=== PATIENT | female | born 1955 | race Caucasian/White ===

== ENCOUNTER 2017-04-05 09:29 | Outpatient (CLI) ==
[2012-12-22 18:29] VITALS: BMI 32.0
--- NOTE | 2017-04-06 09:21 | MAMMO ---
EXAM: Digital screening mammogram with 3-D tomosynthesis and CAD HISTORY: Screening mammogram. COMPARISON: Mammogram 10/02/2014 FINDINGS: MLO and CC images demonstrate biopsy changes in the medial central left breast with associa dianna soft tissue that is unchanged. There is scattered fibroglandular densities. Benign calcification s are present. No acute abnormality is noted on tomosynthesis. IMPRESSION: 1. No new or suspicious pulmonary nodule or calcification. 2. Stable left breast biopsy site with associated minimal soft tissue dating back to 2013. BIRADS category II: Benign findings. Recommendation: Annual screening mammogram.
== END 2017-04-05 09:30 | disposition home or self-care (01) ==
LOC: RAD 09:29
PROVIDERS: ATTEND Internal Medicine
DX: Z12.31 Encounter for screening mammogram for malignant neoplasm of breast (principal)
CPT/HCPCS: 77067

== ENCOUNTER 2017-06-15 10:00 | Outpatient (RCR) ==
[2012-12-22 18:29] VITALS: BMI 32.0
--- NOTE | 2017-06-03 15:58 | RS.OPPTEV2 ---
Date of Note: 06/03/17 Visit #: 1 Date of Evaluation: 06/03/17 Payer Source: Insurance Surgery Performed?: Yes Date of Procedure: 05/27/17 Treatment Diagnosis: Left knee pain, joint effusion, knee stiffness, s/p knee arthroscopy History of Condition/Mechanism of Injury:: States she had a previous surgery to the left knee more than twenty years ago. States she has had a few years of pain and it was found that she had a bone spur and some arthritis. She had arthroscopic surgery on 05/27/17 to clean up the knee joint. Prior Level of Function.....Patient was independent with: ADL's, Self Care, Caregiving, Ambulation/Mobility, Community Integration/Access Functional Limitations: Sleep, ADL's, Sitting, Standing, Bending, Squatting, Ambulation, Community Access/Integration Current Subjective/complaints:: Patient reports left knee pain and swelling. States Treatment Side (optional): Left Medical History Surgical History Comments:: left knee surgery 20+ years ago. Smoking Status: Never smoker Hx Home Medications: Lisinopril,Fluoxetine, pravastatin, Hydrocodone 5/325 ( Paige) Patient's Goals: Her goal is to return to her prior level of function. Pain Assessment - Pain Description Pain Location: Left knee Current Pain Intensity: 7/10 Functional Outcome Measure LE Functional Scale: 28 (28/80=65% impairment) - G Codes & Severity Modifier G Codes & Modifier: NA Source of G Code score: NA Observation - Observation Inspection: Presents with 2 large bandaids over anterior region of left knee. Bandaids are covering steri strips. Demonstrates no active drainage. Demonstrates expected swelling of the knee joint. Girth Measurement Lower: Left malleoli 25 cm, tibial plateau 42 cm Gait - Gait Pattern Gait Comments: Patient ambulates without an assistive device, with decreased stance on left LE. She demonstrates good heel strike on the left knee. Demonstrates decreased left knee flexion during swing phase. - Left Knee ROM Left Knee Extension: -12 degrees from full extension Left Knee Flexion: 80 (degrees AROM) Comments: Left knee extension improved to -8 degrees with exercises. - Right Knee ROM Right Knee Extension: full extension Right Knee Flexion: 125 (degrees AROM) - Left Knee Strength Left Knee Extension: 4 Good Left Knee Flexion: 4 Good - Right Knee Strength Right Knee Extension: 4+ Good + Right Knee Flexion: 4+ Good + Sensation - Sensation Right Lower Extremity: Intact/Normal Left Lower Extremity: Intact/Normal - Treatment Modality: Electrical Stim Unattended Parameters/Method Applied: IFC X 15 mins with max voltage to 4 . Treatment Area: left knee Patient Position: Supine - Heat/Cryotherapy Treatment: Cryotherapy (with Estim to left knee) Interventions - Exercise/Activities/Manual Therapy Exercises/Activities: Patient instructed in exercises for home: AP's, Quad sets , heel slides, standing HS curls, and heelcord stretch. Patient encouraged to continue to ice the knee and also recommend she elevate the leg while icing. Manual Therapy: NA HOME EXERCISE PROGRAM: AP's, Quad sets, heel slides, standing HS curls, and heelcord stretch. - Charges Timed Code Treatment Minutes: 15 mins Total Treatment Time: 55 mins Procedures billed for this date of service:: EVAL Low, CP , Estim (un) EVALUATION COMPLEXITY LEVEL EVALUATION COMPLEXITY LEVEL: HISTORY: Low, EXAM OF BODY SYSTEMS: Low, CLINICAL PRESENTATION: Low, CLINICAL DECISION MAKING: Low Assessment Assessment: Patient presents one week s/p left knee arthroscopy. She demonstrates joint effusion, limiting her ROM into flexion and extension. She reports overall decrease in functional ability at this time with ADL's and gait due to pain and ROM limitations. She demonstrates great potential to return to prior level of function with therapy to assist in reducing edema and regain AROM and muscle strength. Short Term Goals Goal #1: Pt compliant with HEP. Goal to be met by: 06/10/17 Goal #2: Left knee AROM 0 to 110 degrees. Goal to be met by: 06/17/17 Goal #3: Quad strength 4+/5. Goal to be met by: 06/17/17 Jail Goals Goal #1: Pt Independent in HEP and knows to continue ex's following D/C. Goal to be met by: 07/13/17 Goal #2: Score on LE functional scale improved to 55/80. Goal to be met by: 07/13/17 Goal #3: Left knee AROM WFL's to allow pt to perform all ADL's w/o difficulty. Goal to be met by: 07/13/17 Goal #4: Pt will amb. community distances without gait deviation or pain. Goal to be met by: 07/13/17 Plan - Treatment to be Provided Procedures: Therapeutic Exercises, Therapeutic Activity, Patient Education Modalities: Electrical Stimulation, Cryotherapy - Treatment Plan Frequency: 3 X week Duration: 4 weeks ORDER # VISITS AND/OR THROUGH DATE: 07/13/17 - Treatment Code (1) Knee pain Code(s): M25.569 - PAIN IN UNSPECIFIED KNEE Qualifiers: Chronicity: acute Laterality: left Qualified Code(s): M25.562 - Pain in left knee (2) Knee effusion Qualifiers: Laterality: left Qualified Code(s): M25.462 - Effusion, left knee (3) Knee stiffness Qualifiers: Laterality: left Qualified Code(s): M25.662 - Stiffness of left knee, not elsewhere classified (4) History of arthroscopic knee surgery Code(s): Z98.890 - OTHER SPECIFIED POSTPROCEDURAL STATES Comments: Z98.890
--- NOTE | 2017-06-06 15:03 | RS.OPPTDN ---
Subjective Date of Note: 06/06/17 Visit #: 2 Date of Evaluation: 06/03/17 Payer Source: Insurance Treatment Diagnosis: Left knee pain, joint effusion, knee stiffness, s/p knee arthroscopy Current Subjective/complaints:: Patient reports continued swelling in the left knee. States she is trying to do most light activities at home and is using ice. Pain Assessment - Pain Description Pain Location: Left knee Pain Description: Tightness, Aching Current Pain Intensity: 5-6/10 prior to and 4/10 following EX and modalities - Treatment Modality: Electrical Stim Unattended Parameters/Method Applied: [id number] at 55-65p.v. with 4 large pads, cross current , to the left knee with CP following EX. Patient Position: Supine - Heat/Cryotherapy Treatment: Cryotherapy ([id number] with Estim ) Interventions - Exercise/Activities/Manual Therapy Exercises/Activities: AP's, Quad sets, heel slides. Hamstring stretching and passive knee flexion. Assist SLR and hip abd. Yellow TB for resist left ankle df and ham curl. Isometric hip add and isometric ankle inversion with hip rotation. In sitting, yellow TB for ham curl. Total minutes of Exercise: 32mins Manual Therapy: NA HOME EXERCISE PROGRAM: AP's, Quad sets, heel slides, standing HS curls, and heelcord stretch. - Charges Timed Code Treatment Minutes: 32mins Total Treatment Time: 52mins Procedures billed for this date of service:: EX2, CP, Estim unattended Assessment: Patient progressing with exercises. Patient Education: Body/Joint mechanics, Home Exercise Program, Home Safety, Activity Modification Comments: Discussed reducing activities at home to limited amounts of time to reduce swelling and pain in the left knee. Patient demonstrates compliance with HEP?: Yes Short Term Goals Goal #1: Pt compliant with HEP. Goal to be met by: 06/10/17 Progress towards Goal:: Progressing Goal #2: Left knee AROM 0 to 110 degrees. Goal to be met by: 06/17/17 Progress towards Goal:: Progressing Goal #3: Quad strength 4+/5. Goal to be met by: 06/17/17 Mushroom Farmer Goals Goal #1: Pt Independent in HEP and knows to continue ex's following D/C. Goal to be met by: 07/13/17 Progress towards goal: Progressing Goal #2: Score on LE functional scale improved to 55/80. Goal to be met by: 07/13/17 Goal #3: Left knee AROM WFL's to allow pt to perform all ADL's w/o difficulty. Goal to be met by: 07/13/17 Progress towards goal: Progressing Goal #4: Pt will amb. community distances without gait deviation or pain. Goal to be met by: 07/13/17 Plan PLAN OF CARE EXPIRES ON:: 07/13/17 ORDER # VISITS AND/OR THROUGH DATE: 07/13/17 PLAN: Continue modalities and progress exercise to reduce swelling and increase functional activity level.
--- NOTE | 2017-06-08 14:38 | RS.OPPTDN ---
Subjective Date of Note: 06/08/17 Visit #: 3 Date of Evaluation: 06/03/17 Payer Source: Insurance Treatment Diagnosis: Left knee pain, joint effusion, knee stiffness, s/p knee arthroscopy Current Subjective/complaints:: Patient reports she saw physician today and he was pleased with her progress. Pain Assessment - Pain Description Pain Location: Left knee Current Pain Intensity: 5/10 - Treatment Modality: Electrical Stim Unattended Parameters/Method Applied: [id number] HVGC to 65p.v. with 4 large pads, cross current, with CP to the left knee following EX. Patient Position: Supine - Heat/Cryotherapy Treatment: Cryotherapy ([id number] with Estim ) Interventions - Exercise/Activities/Manual Therapy Exercises/Activities: AP's, Quad sets, heel slides. Hamstring stretching and passive knee flexion. SLR and SLR/VMO 4s/5reps each. Assist hip abd, 3s/5reps. Green TB for resist left ankle df and ham curl. Isometric hip add and isometric ankle inversion with hip rotation, both with ball. Passive hamstring stretch and knee flexion. Total minutes of Exercise: 25mins Manual Therapy: NA HOME EXERCISE PROGRAM: AP's, Quad sets, heel slides, standing HS curls, and heelcord stretch. - Objective Findings Observations,measurements,etc.: Passive left knee flexion to 115 degrees and extension to -5 degrees. - Charges Timed Code Treatment Minutes: 25mins Total Treatment Time: 50mins Procedures billed for this date of service:: EX2, CP, Estim unattended Assessment: Patient progressing with strengthening and with ROM of the left knee. Patient Education: Education of diagnosis, Body/Joint mechanics, Home Exercise Program Patient demonstrates compliance with HEP?: Yes Short Term Goals Goal #1: Pt compliant with HEP. Goal to be met by: 06/10/17 Progress towards Goal:: Progressing Goal #2: Left knee AROM 0 to 110 degrees. Goal to be met by: 06/17/17 Progress towards Goal:: Partially Met Goal #3: Quad strength 4+/5. Goal to be met by: 06/17/17 Associate Consulting Engineer Goals Goal #1: Pt Independent in HEP and knows to continue ex's following D/C. Goal to be met by: 07/13/17 Progress towards goal: Progressing Goal #2: Score on LE functional scale improved to 55/80. Goal to be met by: 07/13/17 Goal #3: Left knee AROM WFL's to allow pt to perform all ADL's w/o difficulty. Goal to be met by: 07/13/17 Progress towards goal: Progressing Goal #4: Pt will amb. community distances without gait deviation or pain. Goal to be met by: 07/13/17 Plan PLAN OF CARE EXPIRES ON:: 07/13/17 ORDER # VISITS AND/OR THROUGH DATE: 07/13/17 PLAN: Continue modalities and progress exercise to increase strength and ROM.
--- NOTE | 2017-06-10 16:31 | RS.CXNS ---
Date of scheduled appointment: 06/10/17 Type: Cancel (Patient left VM to cancel appointment. No reason given.)
--- NOTE | 2017-06-14 15:11 | RS.OPPTDN ---
Subjective Date of Note: 06/14/17 Visit #: 4 Date of Evaluation: 06/03/17 Payer Source: Insurance Treatment Diagnosis: Left knee pain, joint effusion, knee stiffness, s/p knee arthroscopy Current Subjective/complaints:: Patient reports swelling seems much better. States she is working on HEP. Pain Assessment - Pain Description Pain Location: Left knee Current Pain Intensity: little to no discomfort following EX and modalities - Treatment Modality: Electrical Stim Unattended Parameters/Method Applied: [id number] HVGC to 55p.v. with 4 large pads, cross current, to left knee with CP. Patient Position: Supine - Heat/Cryotherapy Treatment: Cryotherapy ([id number] with Estim ) Interventions - Exercise/Activities/Manual Therapy Exercises/Activities: AP's, Quad sets, heel slides. Hamstring stretching and passive knee flexion. Added 1# to SLR 4s/5reps. SLR/VMO 4s/5reps each. SAQ 2# 2s /10reps. Yellow TB for resisted hip abd and add, 10reps each. TB for resist left ankle df and ham curl. Isometric hip add and isometric ankle inversion with hip rotation, both with ball. Passive hamstring stretch and knee flexion. In sitting, isometric knee flexion and extension. Yellow theraband ham curl. Ended with bike x4mins slow pace for ROM. Total minutes of Exercise: 25mins/29mins Manual Therapy: NA HOME EXERCISE PROGRAM: AP's, Quad sets, heel slides, standing HS curls, and heelcord stretch. - Charges Timed Code Treatment Minutes: 25mins Total Treatment Time: 49mins Procedures billed for this date of service:: EX2, CP, Estim unattended Assessment: Patient progressing well with increased resistive exercise. Patient Education: Body/Joint mechanics, Home Exercise Program, Home Safety Patient demonstrates compliance with HEP?: Yes Short Term Goals Goal #1: Pt compliant with HEP. Goal to be met by: 06/10/17 Progress towards Goal:: Progressing Goal #2: Left knee AROM 0 to 110 degrees. Goal to be met by: 06/17/17 Progress towards Goal:: Partially Met Goal #3: Quad strength 4+/5. Goal to be met by: 06/17/17 Ethylbenzene Converter Operator Goals Goal #1: Pt Independent in HEP and knows to continue ex's following D/C. Goal to be met by: 07/13/17 Progress towards goal: Progressing Goal #2: Score on LE functional scale improved to 55/80. Goal to be met by: 07/13/17 Goal #3: Left knee AROM WFL's to allow pt to perform all ADL's w/o difficulty. Goal to be met by: 07/13/17 Progress towards goal: Progressing Goal #4: Pt will amb. community distances without gait deviation or pain. Goal to be met by: 07/13/17 Plan PLAN OF CARE EXPIRES ON:: 07/13/17 ORDER # VISITS AND/OR THROUGH DATE: 07/13/17 PLAN: Continue modalities and progress exercise to reduce pain and increase functional activity level.
--- NOTE | 2017-06-15 14:05 | RS.OPPTDN ---
Subjective Date of Note: 06/15/17 Visit #: 5 Date of Evaluation: 06/03/17 Payer Source: Insurance Treatment Diagnosis: Left knee pain, joint effusion, knee stiffness, s/p knee arthroscopy Current Subjective/complaints:: Patient reports increased soreness left knee joint line. Discomfort increases with resistive quad contractions. Pain Assessment - Pain Description Pain Location: Left knee Pain Description: Sharp, Aching Current Pain Intensity: moderate - Treatment Modality: Electrical Stim Unattended Parameters/Method Applied: [id number] HVGC to 45p.v. with 4 large pads, cross current, to the left knee with CP following EX. Patient Position: Supine - Heat/Cryotherapy Treatment: Cryotherapy ([id number] with Estim ) Interventions - Exercise/Activities/Manual Therapy Exercises/Activities: AP's, Quad sets, heel slides. Hamstring stretching and passive knee flexion. SLR 4s/5reps. SLR/VMO 4s/5reps each. SAQ no weight 2s/ 10reps. Yellow TB for resisted hip abd and add, 10reps each. Manually resisted left ankle df, inversion, and eversion. Isometric hip add and isometric ankle inversion with hip rotation, both with ball. Passive hamstring stretch and knee flexion. In sitting, isometric knee flexion and extension. Yellow theraband ham curl. Short range SAQ with ball between feet, 5reps, stopped due to pain. Ended with bike x5mins slow pace for ROM. Total minutes of Exercise: 25mins/30mins Manual Therapy: NA HOME EXERCISE PROGRAM: AP's, Quad sets, heel slides, standing HS curls, and heelcord stretch. Hamstring stretch. SLR, SLR/VMO - Charges Timed Code Treatment Minutes: 25mins Total Treatment Time: 50mins Procedures billed for this date of service:: EX2, CP, Estim unattended Assessment: Patient with increase discomfort today may be due to increase in resistive exercise. Will need to rest and use ice today and resume gentle strengthening tomorrow as tolerated. Patient Education: Home Exercise Program, Activity Modification Comments: Patient advised to rest, ice, and work on gentle exercises today and resume all of HEP tomorrow. Patient demonstrates compliance with HEP?: Yes Short Term Goals Goal #1: Pt compliant with HEP. Goal to be met by: 06/10/17 Progress towards Goal:: Partially Met Goal #2: Left knee AROM 0 to 110 degrees. Goal to be met by: 06/17/17 Progress towards Goal:: Partially Met Goal #3: Quad strength 4+/5. Goal to be met by: 06/17/17 Disability Specialist Goals Goal #1: Pt Independent in HEP and knows to continue ex's following D/C. Goal to be met by: 07/13/17 Progress towards goal: Progressing Goal #2: Score on LE functional scale improved to 55/80. Goal to be met by: 07/13/17 Goal #3: Left knee AROM WFL's to allow pt to perform all ADL's w/o difficulty. Goal to be met by: 07/13/17 Progress towards goal: Progressing Goal #4: Pt will amb. community distances without gait deviation or pain. Goal to be met by: 07/13/17 Plan PLAN OF CARE EXPIRES ON:: 07/13/17 ORDER # VISITS AND/OR THROUGH DATE: 07/13/17 PLAN: Continue progression of strengthening exercises as tolerated.
--- NOTE | 2017-06-17 11:33 | RS.CXNS ---
Date of scheduled appointment: 06/17/17 Type: Cancel (Patient called to cancel. States she will call back to reschedule. )
== END 2017-06-22 ==
PROVIDERS: ATTEND Orthopaedic Surgery
DX: S83.242D Other tear of medial meniscus, current injury, left knee, subsequent encounter (principal)

== ENCOUNTER 2017-07-07 15:06 | Emergency (ER) ==
[2017-07-07 15:10] VITALS: BP 172/83; TEMP 98.7; BMI 35.1
--- NOTE | 2017-07-07 15:51 | ED.PDOC ---
General ED Provider: Dr. SHIN JIMENES 1530 hrs Chief Complaint: Extremity Swelling/Pain Stated Complaint: Recently had Lt knee surgery and while walking developed lt calf pain. Worried about possible DVT and came to ER for evaluation Time Seen by Physician: 15:25 Mode of Arrival: Walk-In Information Source: Patient Exam Limitations: No limitations Primary Care Provider: DIAZ CAMPOS Nursing and Triage Documentation Reviewed and Agree: Yes Reviewed sepsis parameters & appropriate labs ordered?: Yes System Inflammatory Response Syndrome: Not Applicable Sepsis Protocol: For patient's 13 years and over: Temp is 96.8 and below OR 101 and greater Pulse >90 BPM Resp >20/minute Acutely Altered Mental Status Are patient's symptoms suggestive of a new infection, such as: -Pneumonia -Skin, Soft Tissue -Endocarditis -UTI -Bone, Joint Infection -Implantable Device -Acute Abdominal Infection -Wound Infection -Meningitis -Blood Stream Catheter Infection -Unknown System Inflammatory Response Syndrome: Not Applicable Review of Systems - Review Of Systems Constitutional: Reports: No symptoms Eyes: Reports: No symptoms Ears, Nose, Mouth, Throat: Reports: No symptoms Respiratory: Reports: No symptoms Cardiac: Reports: No symptoms GI: Reports: No symptoms : Reports: No symptoms Musculoskeletal: Reports: No symptoms, Other (calf pain ) Skin: Reports: No symptoms Neurological: Reports: No symptoms Endocrine: Reports: No symptoms Hematologic/Lymphatic: Reports: No symptoms All Other Systems: Reviewed and Negative Past Medical History - Past Medical History Endocrine: Reports: None, Dyslipidemia Cardiovascular: Reports: Hypertension Respiratory: Reports: None Hematological: Reports: None Gastrointestinal: Reports: None Genitourinary: Reports: None Neuro/Psych: Reports: None Musculoskeletal: Reports: None Cancer: Reports: None Last Menstrual Period: n/a - Surgical History General Surgical History: Reports: None, Orthopedic - Family History Family History: Reports: None - Social History Smoking Status: Never smoker Hx Substance Use: No Alcohol Screening: None Physical Exam - Physical Exam Appearance: Well-appearing, Obese Ill-appearing: None Pain Distress: None Eyes: AUNG, EOMI, Conjunctiva clear ENT: Ears normal, Nose normal, Oropharynx normal Neck: Supple Respiratory: Airway patent, Breath sounds clear Cardiovascular: RRR, Pulses normal, No rub, No murmur GI/: Soft, Nontender, No masses, Bowel sounds normal Musculoskeletal: Normal strength, ROM intact, No edema Skin: Warm, Dry, Normal color, Pale Neurological: Sensation intact, Motor intact Psychiatric: Affect appropriate, Mood appropriate Critical Care Note - Critical Care Note Total Time (mins): 0 Course - Course Orders, Labs, Meds: Orders Category Date Time Status ULTRASOUND VENOUS SCAN LT. LEG [U/S VENOUS SCAN LT. LEG RADS 07/07/17 15:36 Completed ] Stat Vital Signs: Temp Pulse Resp BP Pulse Ox 07/07/17 15:06 98.7 F 102 H 16 172/83 H 96 Departure - Departure Time of Disposition: 16:30 Disposition: HOME SELF-CARE Discharge Problem: Muscle strain Instructions: Muscle Strain (ED) Condition: Good Pt referred to PMD for follow-up: Yes IPMP verified?: No Additional Instructions: Apply ice pack to area of discomfort for 20 minutes 4 times daily Take Ibuprofen 200 mg 2-3 tabs four times daily as needed Follow up if other symptoms occur and with Dr Campos in 1 week Allergies/Adverse Reactions: Allergies pseudoephedrine HCl [From Sudafed] Adverse Reaction (Verified 07/07/17 15:11) Sulfa (Sulfonamide Antibiotics) Adverse Reaction (Verified 07/07/17 15:11) Home Medications: Ambulatory Orders Iron 18 mg PO BID 12/22/12 Lisinopril [Zestril] 10 mg PO DAILY 12/22/12 Paroxetine HCl [Paxil] 10 mg PO DAILY 12/22/12 Hydrocodone/Acetaminophen [Hydrocodon-Acetaminophen 5-325] 1 each PO DAILY 07/07 Pravastatin Sodium 10 mg PO DAILY 07/07/17 Disposition Discussed With: Patient, Family
--- NOTE | 2017-07-07 16:11 | US ---
EXAM: ULTRASOUND LOWER EXTREMITY VENOUS DOPPLER EXAM HISTORY: Calf pain. Postop FINDINGS: Left lower extremity venous Doppler exam. Real time meléndez-scale, Doppler spectral analysis and color-flow Doppler imaging performed. The veins targeted for evaluation include the common femor al, greater saphenous, profundus, femoral, popliteal, peroneal, anterior tibial and posterior tibial. The evaluated veins demonstrated normal spontaneous flow and compression without evidence of throm bosis. IMPRESSION: No venous thrombosis identified within the areas evaluated.
== END 2017-07-07 16:46 | disposition home or self-care (01) ==
LOC: ED 15:06
DX: S86.912A Strain of unspecified muscle(s) and tendon(s) at lower leg level, left leg, initial encounter (principal); M79.662 Pain in left lower leg; Z98.890 Other specified postprocedural states
CPT/HCPCS: 99283